=== PATIENT | female | born 1990 | race Two or more races ===

== ENCOUNTER 2023-11-21 06:11 | Day surgery (SDC) | payer OTHER ==
[~2023-11-21] VITALS: Ht 162.6 cm; Wt 72.6 kg
--- NOTE | 2023-11-21 05:23 | NUR ---
SE RECIBE A PACIENTE ALERTA Y ORIENTADA LA CUAL REFIERE QUE BUSTILLOS ESTADO PRESENTANDO UN SANGRADO VAGINAL DESDE HACE 3 SEMANAS. PTE REFIERE QUE CULLEN ULTIMO PERIODO MENSTRUAL FUE A FINALES DEL MES PASADO. SE MIDEN S/V
[~2023-11-21 06:11] MED LIST: RINGERS SOLUTION,LACTATED 1,000 ML IV ONE
--- NOTE | 2023-11-21 06:17 | NUR ---
REJI.TAB ORIENTA A PTE SOBRE TX MEDICO ORDENADO POR . REALIZA KEVIN DE MUESTRAS AZAR ORDEN MEDICA Y BAJO MEDIDAS ASEPTICAS. VENOPUNCION PATENTE BAJADNO IV FLUIDS POR REGULADOR. PTE PENDIENTE A SUBIR A O.R.
[2023-11-21 07:01] LABS: INR 1.03; PARTIAL THROMBOPLASTIN TIME 28.4 SECONDS (22.0-34.0); PROTHROMBIN TIME 10.8 SECONDS (9.0-11.5)
[2023-11-21 07:11] LABS: HEMATOCRIT 33.7 % (36.0-45.00); HEMOGLOBIN 10.8 g/dL (12.0-15.00); MEAN CELL VOLUME 74.8 fL (80.00-100.00); MEAN CORPUSCULAR HEMOGLOBIN 24.1 pg (27.00-32.0); MEAN CORPUSCULAR HGB CONC 32.2 g/dl (32.0-36.0); PLATELET COUNT 312 K/uL (150-450); RED CELL DISTRIBUTION WIDTH 19.4 % (11.5-14.5)
[2023-11-21 07:13] LABS: ALBUMIN 3.7 gm/dL (3.4-5.0); BILIRUBIN TOTAL 0.33 mg/dL (0.3-1.2); CALCIUM 8.8 mg/dL (8.5-10.1); CREATININE SERUM 0.7 mg/dL (0.55-1.02); GFR 96.97; GLOBULINA 4.3 G/DL (2.4-3.5); POTASSIUM 4.14 mEq/L (3.5-5.1)
--- NOTE | 2023-11-21 07:31 | NUR ---
SE RECIBE PTE ALERTA Y ORIENTADSA X3 EN AMBROCIO POSICION MAS BAJA CON BARANDAS ELEVADAS POR PRECAUCION. PTE CON UN ANGIO #20 EN LT BAJANDO UN RL @150MLS/HRS PATENTE JUANITA DE EDEMA, ERITEMA Y SIGNOS DE INFECCION. PTE EN ESPERA DE SUBIR A RAHUL DE OPERACIONES. SE MANTIENE A PTE BAJO OBSERVACION POR CAMBIOS SIGNIFICATIVOS.
[2023-11-21] MEDS ORDERED: CEFAZOLIN SODIUM 1,000 MG VIAL IV SCH (07:45)
[2023-11-21 08:02] LABS: PH,URINE 5.5 (5.0-8.0); URINE APPEARANCE Cloudy; URINE BILIRRUBIN Negative (NEGATIVE); URINE BLOOD Large; URINE COLOR Yellow; URINE GLUCOSE Negative (NEGATIVE); URINE LEUKOCYTE Large; URINE NITRATE Negative; URINE PROTEIN 30 (NEGATIVE); URINE UROBILINOGEN 0.2 E.U./dl
[2023-11-21 08:06] LABS: URINE BACTERIA 1540.9 uL (0.0-1933); URINE EPITHELIAL CELLS 24.2 uL (0.0-38.8)
--- NOTE | 2023-11-21 08:07 | NUR ---
SE ENTREGA PERMISO PRE OPERATORIO A PTE Y SE PONE EN EXPEDIENTE CLINICO. SE REALIZA XRAY PENDIENTE. SE VISTE PTE PARA RAHUL. EN ESPERA PARA SUBIR A RAHUL.
[2023-11-21] MEDS ORDERED: MAXIMUM D3325 MCG (08:47)
[2023-11-21] MEDS ORDERED: FERROUS SULFAT325 MG (08:49)
[2023-11-21] MEDS ORDERED: MORGIDOX100 MG PO (14:36)
[2023-11-21] MEDS ORDERED: IBU600 MG PO (14:37)
== END 2023-11-21 18:30 | disposition home or self-care (01) ==
LOC: CIR.AMB 06:11 → SEC-K 06:11 → ER 06:11 → SEC-K 11:57 → O/R 11:57 → CIR.AMB 18:30
PROVIDERS: ATTEND General Practice
DX: N84.0 Polyp of corpus uteri (principal); N84.1 Polyp of cervix uteri; N72 Inflammatory disease of cervix uteri; N92.1 Excessive and frequent menstruation with irregular cycle